=== PATIENT | male | born 1980 | race Hispanic/Latino ===

== ENCOUNTER 2018-04-10 14:08 | Emergency (ER) | payer OTHER ==
[2018-04-10 14:11] VITALS: BMI 25.8
--- NOTE | 2018-04-10 15:40 | C.PDOC ---
History Of Present Illness 38 y/o male presents to the ED complaining of a sore throat associated with tactile fever for 2 days. Denies any associated nausea, vomiting, or diarrhea. No known sick contacts. Time Seen by Provider: 04/10/18 14:27 Chief Complaint (Nursing): ENT Problem History Per: Patient History/Exam Limitations: None Onset/Duration Of Symptoms: Days Current Symptoms Are (Timing): Still Present Past Medical History Reviewed: Historical Data, Nursing Documentation, Vital Signs Vital Signs: Last Vital Signs Temp 97.9 F 04/10/18 14:14 Pulse 100 H 04/10/18 14:14 Resp 20 04/10/18 14:14 BP 168/78 H 04/10/18 14:14 Pulse Ox 99 04/10/18 15:50 - Medical History PMH: Diabetes Surgical History: No Surg Hx Family History: States: No Known Family Hx - Social History Hx Tobacco Use: No Hx Alcohol Use: Yes Hx Substance Use: No - Immunization History Hx Tetanus Toxoid Vaccination: No Hx Influenza Vaccination: No Hx Pneumococcal Vaccination: No Review Of Systems Except As Marked, All Systems Reviewed And Found Negative. ENT: Positive for: Throat Pain Physical Exam - Physical Exam Appears: Non-toxic, No Acute Distress Skin: Normal Color, Warm, Dry Head: Atraumatic, Normacephalic Eye(s): bilateral: Normal Inspection, PERRL, EOMI Nose: Normal Oral Mucosa: Moist Throat: Exudate (Tonsillar hypertrophy with exudates bilaterally) Neck: Normal ROM, Supple Lymphatic: Adenopathy (+ tender bilateral cervical lymphadenopathy) Cardiovascular: Rhythm Regular, No Murmur Respiratory: Normal Breath Sounds, No Rales, No Rhonchi, No Wheezing Extremity: Bilateral: Atraumatic, Normal Color And Temperature Neurological/Psych: Oriented x3, Normal Speech ED Course And Treatment O2 Sat by Pulse Oximetry: 99 (RA) Pulse Ox Interpretation: Normal Medical Decision Making Medical Decision Making: Impression: Pharyngitis Plan: --Amoxicillin 500 mg PO --Motrin 600 mg PO Patient counseled regarding diagnosis and treatment plan. Will d/c on Amoxicillin. Patient advised to follow up with primary doctor in 1-2 days. Disposition Counseled Patient/Family Regarding: Diagnosis, Need For Followup, Rx Given - Disposition Referrals: [facility] [Outside] Disposition: HOME/ ROUTINE Disposition Time: 15:38 Condition: STABLE Additional Instructions: follow up with your doctor in 2 days call to make an appointment take medications as prescribed return to ER if symptoms worsens or progress Prescriptions: Amoxicillin 875 mg PO BID 10 Days #20 tablet Instructions: Sore Throat, Adult (DC) Forms: General Discharge Instructions, [facility] (Qatari), Work Excuse - POA Present On Arrival: None - Clinical Impression Clinical Impression: Pharyngitis - Scribe Statement The provider has reviewed the documentation as recorded by the Scribe (Karol Hager) Provider Attestation: All medical record entries made by the Gianlucaibe were at my direction and personally dictated by me. I have reviewed the chart and agree that the record accurately reflects my personal performance of the history, physical exam, medical decision making, and the department course for this patient. I have also personally directed, reviewed, and agree with the discharge instructions and disposition.
[2018-04-10 16:07] VITALS: BP 154/74; PULSE 88; RESP 18; TEMP 98; O2SAT 100
== END 2018-04-10 16:08 | disposition home or self-care (01) ==
LOC: C.ER 14:08
DX: J02.9 Acute pharyngitis, unspecified (principal); E11.9 Type 2 diabetes mellitus without complications